=== PATIENT | female | born 1940 | race Caucasian/White ===

== ENCOUNTER → 2016-09-24 | Outpatient (CLI) | payer MEDICARE ==
[~2016-09-24] MED LIST: ASPI-558 PO; LISI-127 PO; MULT-543 PO; PHEN100C84 PO; STRONTIUM PO
--- NOTE | 2016-09-24 10:55 | DI ---
Indication: ITS.REASON: M54.5 LOW BACK PAIN; M54.16 RADICULOPATHY, LUMBAR REGION PROCEDURE: MRI LUMBAR SPINE W/O CONTRAST: Encounter: Initial Comparison: None Technique: Multiplanar multisequence MR imaging of the lumbar spine was performed without contrast. Findings: Alignment of the lumbar spine is within normal limits. No acute fracture identified. 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 Conus medullaris terminates normally at L1. The paraspinal soft tissues are unremarkable. Segmental analysis: L1-L2: Normal L2-L3: Normal L3-L4: Mild lateral disk bulging without central canal stenosis. No neural foraminal stenosis. L4-L5: Degenerative facet hypertrophy with a small disk bulge and ligamentum flavum thickening contributes to moderate central canal stenosis. Mild bilateral neural foraminal stenosis. L5-S1: Mild degenerative facet change. No focal disk protrusion or central canal stenosis. No neural foraminal narrowing. 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 .
== END ==
LOC: IMA 08:59
PROVIDERS: ATTEND Physician Assistant
DX: M48.06 Spinal stenosis, lumbar region (principal); M54.5 Low back pain; M54.16 Radiculopathy, lumbar region